=== PATIENT | female | born 1970 | race Caucasian/White ===

== ENCOUNTER → 2020-03-31 | Outpatient (CLI) | payer OTHER ==
--- NOTE | 2020-03-31 12:31 | FL ---
EXAMINATION TYPE: FL barium swallow DATE OF EXAM: 03/31/2020 COMPARISON: None HISTORY: Dysphasia feels like something is stuck in throat TECHNIQUE: Double air contrast technique is utilized to evaluate the esophagus. FINDINGS: Esophagus dilates to normal caliber has normal contour to the gastroesophageal junction. Gastroesopha geal junction opens to normal caliber. No intraluminal filling defects are evident. No Zenker's diver ticulum was identified. Gastroesophageal junction opens to normal caliber. There are couple of tertiary contractions present during this examination. There is complete strippin g of the esophageal bolus the horizontal drinking position. Small anterior osteophytes at C6 are pres ent which is approximately level of patient complains of dysphasia. On swallowing images of the tiny amount of contrast may remain anterior to the cervical esophagus following swallowing. IMPRESSION: 1. No suspicious acute changes to suggest obstruction or retained foreign bodies. 2. No focal stenosis. 3. Very minimal contrast remains following the initial swallowing within the proximal cervical esoph cata.
== END | disposition home or self-care (01) ==
LOC: RADUSWWP 09:49
PROVIDERS: ATTEND Otolaryngology
DX: R13.10 Dysphagia, unspecified (principal)
CPT/HCPCS: 74220

== ENCOUNTER 2020-04-02 14:00 | Emergency (ER) | payer OTHER ==
--- NOTE | 2020-04-02 15:17 | ED ---
Abdominal Pain HPI - General Source: patient Mode of arrival: ambulatory Limitations: no limitations <Mari Woo - Last Filed: 04/02/20 16:33> <Yeny Myles - Last Filed: 04/07/20 07:17> - General Chief Complaint: Abdominal Pain Stated Complaint: Abd pain Time Seen by Provider: 04/02/20 14:15 - History of Present Illness Initial Comments: 49-year-old female presenting today for chief complaint of abdominal fullness, constipation. Patient states that she has not had a large bowel movement for past week but is passing stool> Denies dark or bloody stools. Has barium swallow two days prior with her ENT physician secondary to pain with swallowing for months. Patient denies significant abdominal pain, but states at time she has cramping. Patient denies fevers, vomiting, back pain. patient denies urinary changes. Patient appears well on arrival no acute distress. (Mari Woo) - Related Data Previous Rx's Medication Instructions Recorded Amoxicillin/Potassium Clav 1 each PO Q12HR #20 tab 02/22/14 [Augmentin 875-125 Tablet] Hydrocodone/Acetaminophen 1 each PO QID PRN #10 tablet 02/22/14 [Hydrocodone/Acetaminophen 5-325] Allergies Allergy/AdvReac Type Severity Reaction Status Date / Time No Known Allergies Allergy Verified 04/02/20 14:14 Review of Systems ROS Other: All systems not noted in ROS Statement are negative. <Mari Woo - Last Filed: 04/02/20 16:33> ROS Other: All systems not noted in ROS Statement are negative. <Yeny Myles - Last Filed: 04/07/20 07:17> ROS Statement: Those systems with pertinent positive or pertinent negative responses have been documented in the HPI. Past Medical History Past Medical History: No Reported History History of Any Multi-Drug Resistant Organisms: None Reported Past Surgical History: Tubal Ligation Past Psychological History: No Psychological Hx Reported Smoking Status: Former smoker Past Alcohol Use History: Rare Past Drug Use History: None Reported <Mari Woo - Last Filed: 04/02/20 16:33> General Exam Limitations: no limitations <Mari Woo - Last Filed: 04/02/20 16:33> Course Vital Signs 04/02/20 04/02/20 14:10 16:33 Temperature 98.4 F 98.2 F Pulse Rate 100 90 Respiratory 18 16 Rate Blood Pressure 134/69 128/73 O2 Sat by Pulse 97 98 Oximetry Medical Decision Making <Mari Woo - Last Filed: 04/02/20 16:33> <Yeny Myles - Last Filed: 04/07/20 07:17> - Medical Decision Making X-ray negative for sniffing constipation no evidence of obstructive bowel pattern. Patient has soft nondistended abdomen no tenderness. Patient is change in bowel habits. At this time recommend GI follow-up. Return for any abdominal pain patient discharged. While Dr. Myles agreeable to care for discharge at this time patient seemed agreeable and happy with the care plan discharge in no distress appearing very well (Mari Woo) I was available for consultation in the emergency department. The history and physical exam were done by the midlevel provider. I was consulted for this patients care. I reviewed the case with the midlevel provider and based on their presentation of the patient, I agree with the assessment, medical decision making and plan of care as documented. Chart was dictated using Mydeo dictation software. Attempts were made to correct any dictation errors however some typographical errors may persist. (Yeny Myles) Disposition Is patient prescribed a controlled substance at d/c from ED?: No Time of Disposition: 16:26 <Mari Woo - Last Filed: 04/02/20 16:33> <Yeny Myles - Last Filed: 04/07/20 07:17> Clinical Impression: Bowel habit changes Disposition: HOME SELF-CARE Condition: Good Instructions (If sedation given, give patient instructions): Irritable Bowel Syndrome (ED), Constipation (ED) Additional Instructions: Please use medication as discussed. Please follow-up with family doctor in the next 2 days, recommend GI follow-up. Please return to emergency room if the symptoms increase or worsen or for any other concerns. Referrals: [facility] [Primary Care Provider] - 1-2 days Maria G Boateng MD [STAFF PHYSICIAN] - 1-2 days
--- NOTE | 2020-04-02 16:18 | XR ---
EXAMINATION TYPE: XR KUB DATE OF EXAM: 04/02/2020 COMPARISON: 03/16/2010 HISTORY: Constipation. Pain. TECHNIQUE: 2 views upright FINDINGS: There is contrast in the large bowel. There is no significant retained fecal material. Ivette l gas pattern is normal. There is no sign of intestinal obstruction or pneumoperitoneum. Lung bases a re clear. I see no pathologic calcifications. Bony structures appear intact. IMPRESSION: Nonacute abdomen. No sign of constipation.
[2020-04-02 16:34] VITALS: BP 128/73; PULSE 90; RESP 16; TEMP 98.2
== END 2020-04-02 16:34 | disposition home or self-care (01) ==
LOC: EC 14:00
DX: R19.4 Change in bowel habit (principal); R10.9 Unspecified abdominal pain; Z87.891 Personal history of nicotine dependence
CPT/HCPCS: 74018; 99284

== ENCOUNTER 2020-05-04 09:21 | Day surgery (SDC) | payer OTHER ==
[2020-05-02 13:57] VITALS: BMI 27.5
[~2020-05-04 09:21] MED LIST: LIDOCAINE 1% (10MG/ML) FOR IV START INTRADERMA PRN
[2020-05-04 09:42] VITALS: RESP 16; TEMP 97.7
[2020-05-04] MEDS: LACTATED RINGERS 1,000 ML IV SCH ×2 (09:51→10:40)
[2020-05-04] MEDS ORDERED: PROPOFOL 10 MG/ML 20 ML VIAL IV ONE (10:42)
[2020-05-04] MEDS ORDERED: LIDOCAINE 1% INJ 10MG/ML (20 ML MDV) ONE (10:42)
--- NOTE | 2020-05-04 10:53 | P.PCN ---
Date of Procedure: 05/04/20 Procedure(s) Performed: BRIEF HISTORY: Patient is a 49-year-old, pleasant, female scheduled for an upper endoscopy for evaluation of dysphagia solids and occasionally with liquids for the last 6 weeks duration. He lost 30 pounds since onset of the symptoms. His and scheduled for an upper endoscopy with possible dilation. PROCEDURE PERFORMED: Esophagogastroduodenoscopy with biopsy. PREOPERATIVE DIAGNOSIS: Progressive dysphagia to solids for the last 5 weeks duration with weight loss of 30 pounds.. IV sedation per anesthesia. PROCEDURE: After informed consent was obtained, the patient was brought into the endoscopy unit. IV sedation was administered by Anesthesia under continuous monitoring. Initially the Olympus GIF-140 video endoscope was inserted into the mouth. Esophagus intubated without any difficulty. It was gradually advanced into the stomach and duodenum and carefully examined. The bulb and the second part of the duodenum appeared normal. The scope at this time was withdrawn to the stomach, adequately insufflated with air, and upon careful examination, mucosa of the antrum, body, cardia and the fundus appeared normal. The scope was then withdrawn into the esophagus. The GE junction was located at 39 cm from the incisors. The esophagus appeared normal. There were no erosions or ulcerations seen , multiple biopsies were done from the distal esophagus and the patient tolerated the procedure well. IMPRESSION: 1. Normal-appearing esophagus with no evidence of esophagitis or esophageal stricture. 2. Normal-appearing stomach and. RECOMMENDATIONS: The findings of this examination were discussed with the patient as well as a family. She was advised to follow with the biopsy results. In the meantime she will be given a a trial of Prilosec 20 mg daily for 4 weeks. If the symptoms she is scheduled for an esophageal manometry to evaluate for esophageal dysmotility..
[2020-05-04 11:13] VITALS: BP 122/76; PULSE 69
== END 2020-05-04 11:40 | disposition home or self-care (01) ==
LOC: ORWHC2ENDO 09:21
PROVIDERS: ATTEND Internal Medicine Gastroenterology
DX: K21.0 Gastro-esophageal reflux disease with esophagitis (principal); Z98.51 Tubal ligation status; Z79.899 Other long term (current) drug therapy
CPT/HCPCS: 81025; 88305; 43239; J2001; J2704

== ENCOUNTER → 2020-06-17 | Day surgery (SDC) | payer OTHER ==
[2020-06-15 13:38] VITALS: BMI 27.2
[2020-06-17 10:14] VITALS: BP 147/70; PULSE 68; RESP 16; TEMP 97.9
--- NOTE | 2020-06-17 15:16 | OP ---
OPERATIVE REPORT DATE OF DICTATION: 06/17/2020. PROCEDURE PERFORMED: Esophageal high-resolution impedance esophageal manometry. PREOPERATIVE DIAGNOSIS: Dysphagia. PROCEDURE DESCRIPTION: After informed consent was obtained from the patient, she was brought into the endoscopy unit. The esophageal manometry catheter was passed into the external nostril. It was gently advanced into the stomach and the esophageal manometry was performed by the endoscopy nursing staff. Study was interpreted using [place] classification. Following are the study results: 1. Lower esophageal sphincter: Mean IRP 7 mmHg. Residual pressure 5 mmHg. 2. Lower esophageal body: Mean DCI 1045 mmHg. Peristaltic contractions 100%. Simultaneous contractions 0%. Retrograde contraction 0%. 3. Impedance study: Complete transit with viscous is 70%. Complete bolus transit with liquids 0%. INTERPRETATION: The above esophageal manometry study shows normal lower esophageal sphincter pressures and a motility pattern involving the upper and lower esophageal bodies within normal limits. There is no evidence of esophageal dysmotility. MMODL / IJN: [id number] /
== END ==
LOC: ORWHC2ENDO 09:50
PROVIDERS: ATTEND Internal Medicine Gastroenterology
DX: R13.10 Dysphagia, unspecified (principal)
CPT/HCPCS: 91010

== ENCOUNTER → 2024-08-06 | Outpatient (CLI) | payer OTHER ==
--- NOTE | 2024-08-06 15:48 | US ---
EXAMINATION TYPE: US pelvis complete transvag DATE OF EXAM: 08/06/2024 COMPARISON: CT abdomen and pelvis 08/06/2024 CLINICAL INDICATION: Female, 54 years old with history of R19.00 INTRA-ABD AND PELVIC SWELLING; Pelvi c mass follow up to ct scan TECHNIQUE: Transvaginal (TV) and Transabdominal (TA) . FINDINGS: EXAM MEASUREMENTS: 1. Uterus: Not visualized due to mass. 2. Endometrium: Not visualized due to mass 3. Right Ovary: Not visualized due to mass 4. Left Ovary: Not visualized due to mass 5. Bilateral Adnexa: Unable to access due to mass. 6. Posterior cul-de-sac: Unable to access due to mass. Complex heterogenous mass measuring 21 x 15.5 x 21.6 cm. This demonstrates large soft tissue heteroge nous component with septations and additional regions of anechoic appearing fluid. The soft tissue co mponent does not demonstrate internal color flow. IMPRESSION: Redemonstration of a large complex soft tissue and fluid mass within the midline pelvis measuring up to 21.[address] 08/06/2024. No internal color flow identified. The remaining reproductive pe lvic structures are poorly visualized due to this mass. This again may represent an ovarian or uterin e or endometrial mass. Gynecologic oncology surgical consultation is recommended. Consider further ev aluation with MR abdomen/pelvis with IV contrast. [facility], , 08/06/2024 3:46 PM
== END | disposition home or self-care (01) ==
LOC: RADUSWWP 14:49
PROVIDERS: ATTEND Family Medicine
DX: R19.00 Intra-abdominal and pelvic swelling, mass and lump, unspecified site (principal)
CPT/HCPCS: 76830; 76856

== ENCOUNTER → 2024-08-06 | Outpatient (CLI) | payer OTHER ==
--- NOTE | 2024-08-06 09:00 | CT ---
EXAMINATION TYPE: CT abdomen pelvis wo/w con DATE OF EXAM: 08/06/2024 COMPARISON: HISTORY: LUQ pain with a palpable mass which has grown rapidly in the last [address] DLP: 2486 mGycm Automated exposure control for dose reduction was used. CONTRAST: CT scan of the abdomen pelvis is performed without and with IV Contrast, patient injected with 100 ml mL of Isovue 300. FINDINGS- LUNG BASES- basilar atelectasis. Heart size is mildly prominent. LIVER/GB- No gross abnormality is appreciated. PANCREAS- No gross abnormality is seen. SPLEEN- No gross abnormality is seen. ADRENALS- No gross abnormality is seen. KIDNEYS/BLADDER- no hydronephrosis nephrolithiasis or renal mass. BOWEL- small hiatal hernia. Bowel gas nonspecific. LYMPH NODES- soft tissue nodule in the right pelvis may be vascular rather than representing a small area of lymphadenopathy reference image 78 series 6 and should be monitored. OSSEOUS STRUCTURES- L2 level hypertrophic and degenerative changes in the spine. 5 mm area of locali zed demineralization the L3 segment is too small to characterize. BE degenerative. Early metastatic d isease not entirely OTHER- there is a large cystic mass may be related to uterine or endometrial ovarian stain in the pe lvis measuring 20 cm. More appropriately evaluated with ultrasound. Additional small cystic adnexal l esion measuring 2.4 cm on image 51. There is displacement of the adjacent structures. Bladder is limited by an complete distention. IMPRESSION- 1. Nonspecific large 20 cm mass in the pelvis likely related to either the uterus, endometrium or ova jeanette. Recommend pelvic ultrasound. [facility], , 08/06/2024 8:57 AM
== END ==
LOC: RADCTMAIN 06:16
PROVIDERS: ATTEND Family Medicine
CPT/HCPCS: 74178

== ENCOUNTER → 2024-08-12 | Outpatient (CLI) | payer OTHER ==
--- NOTE | 2024-08-19 11:33 | MR ---
EXAMINATION TYPE: MR pelvis wo/w con DATE OF EXAM: 08/12/2024 10:07 AM COMPARISON: 08/06/2024. CLINICAL INDICATION: Female, 54 years old with history of R19.00 INTRA-ABD AND PELVIC SWELLING, MASS AND LUM; PHH, Intra abd and pelvis swelling and pain. TECHNIQUE: Triplane multisequence imaging was performed of the pelvis. IV Contrast: 9 cc Gadavist FINDINGS: Reproductive: Vagina: Unremarkable. Uterus: The uterus is anteverted in position. There is a heterogenous partially cystic partially iglesia d mass that appears to be extending from the uterine fundus on sagittal imaging measuring up to 22.1 cm by 22.7 cm. Junctional zone is poorly visualized due to the mass. There is a focal area of high T2 signal adjacent to the endometrium measuring 11 mm possibly representing subendometrial cyst. Ovaries: Right ovary poorly is thought to be located in the right low pelvis laterally. The displaced right ovary demonstrates high T2 cysts measuring up to 3.3 cm. The left ovary demonstrates at least 2 small cysts measuring up to 8 mm. The left ovary measures 21 x 13 mm. Bladder: Unremarkable. Bowel: Unremarkable as visualized. Peritoneum: No free fluid or adenopathy. Lymph nodes: No evidence of adenopathy. Vasculature: Unremarkable. Musculoskeletal: Bone marrow signal is within normal signal intensity. Abdominal wall/soft tissues: Unremarkable. IMPRESSION: 1. Large abdominal mass partially in the ercew-ic-zadc, this appears to be coming from the uterine f undus. Correlate for degenerating fibroid versus cystic mass versus fluid in endometrium from cervica l stenosis which is thought to be less likely versus other. Malignancy not excluded. Gynecology oncol ogy consultation recommended. 2. Right ovarian cyst measuring up to 3.3 cm thought to be present located in the right low abdomen laterally. These are likely displaced by the large uterus. [facility], , 08/19/2024 11:30 AM
== END | disposition home or self-care (01) ==
LOC: RADMRIMAIN 08:30
PROVIDERS: ATTEND Family Medicine
CPT/HCPCS: 72197

== ENCOUNTER → 2024-09-08 | Outpatient (CLI) | payer OTHER ==
--- NOTE | 2024-09-08 11:14 | MM ---
Reason for Exam: Screening (asymptomatic). Patient History: Menarche at age 12. First Full-Term at age 19. Perimenopausal. Risk Values: Sneha 5 year model risk: 0.9%. NCI Lifetime model risk: 6.8%. Tissue Density: There are scattered areas of fibroglandular density. Findings: Analyzed By CAD. Right breast: Grouped Calcifications right breast upper aspect MLO view posterior nipple line on CC view. Left breast: There is no suspicious group of microcalcifications or new suspicious mass. Overall Assessment: Incomplete: need additional imaging evaluation, BI-RAD 0 Management: Diagnostic Mammogram of the right breast. Magnification views right breast. [facility] will attempt to contact patient to return for supplemental views and ultrasound if indicated. Patient should continue monthly self-breast exams. A clinical breast exam by your physician is recommended on an annual basis. This exam should not preclude additional follow-up of suspicious palpable abnormalities. Note on Sneha scores and lifetime risk: 1. A Sneha score greater than 3% is considered moderate risk. If this is the case, consider specialist referral to assess eligibility for a risk reducing agent. 2. If overall lifetime risk for the development of breast cancer is 20% or higher, the patient may qualify for future screening with alternating mammogram and breast MRI. [facility], , 09/08/2024 11:11 AM. Electronically signed and approved by: Hector Perdomo DO
== END | disposition home or self-care (01) ==
LOC: RADMAMWWP 06:50
PROVIDERS: ATTEND Family Medicine
DX: Z12.31 Encounter for screening mammogram for malignant neoplasm of breast (principal); Z01.818 Encounter for other preprocedural examination; R19.00 Intra-abdominal and pelvic swelling, mass and lump, unspecified site; R92.323 Mammographic fibroglandular density, bilateral breasts
CPT/HCPCS: 77063; 77067; 82378; 86304

== ENCOUNTER 2024-09-15 15:35 | Emergency (ER) | payer OTHER ==
--- NOTE | 2024-09-15 15:59 | ED ---
Nausea/Vomiting/Diarrhea HPI - General Chief complaint: Nausea/Vomiting/Diarrhea Stated complaint: VOMITING Time Seen by Provider: 09/15/24 15:48 Source: patient, RN notes reviewed Mode of arrival: ambulatory Limitations: no limitations - History of Present Illness Initial comments: This is a 54-year-old female with nausea/vomiting x 1 day. Patient endorses recent total hysterectomy x 5 days ago at [facility] following discovery of a uterine mass. Patient states current symptoms started shortly after taking all postoperative prescribed medications including: Ibuprofen, Tylenol and oxycodone the day prior. Patient states she attempted taking p.o. Zofran for her symptoms with subsequent emesis. Patient endorses some abdominal pain (5/10) and diarrhea and and inability to hold down food/liquid. Patient denies fever, chills, chest pain, dyspnea, hematemesis, hematochezia, dizziness. MD complaint: nausea, vomiting Onset/Timin -: days(s) Description of Vomiting: food contents, watery Description of Diarrhea: water Associated Abdominal Pain: Yes Location: periumbilical Radiation: none Severity scale (1-10): 5 Improves with: none Worsens with: eating, vomiting Context: recent surgery/procedure Associated Symptoms: loss of appetite, nausea/vomiting - Related Data Home Medications Medication Instructions Recorded Confirmed Loratadine [Claritin] 10 mg PO DAILY PRN 05/02/20 06/15/20 Cannabidiol (Cbd) [Epidiolex] 1 dose PO DAILY PRN 06/15/20 06/15/20 Allergies Allergy/AdvReac Type Severity Reaction Status Date / Time milk Allergy Unknown Verified 09/15/24 15:37 Review of Systems ROS Statement: Those systems with pertinent positive or pertinent negative responses have been documented in the HPI. ROS Other: All systems not noted in ROS Statement are negative. Past Medical History Past Medical History: No Reported History Additional Past Medical History / Comment(s): states having difficulty swallowing food. states had "calcifications of sinuses" seasonal allergies History of Any Multi-Drug Resistant Organisms: None Reported Past Surgical History: Hysterectomy, Tubal Ligation Additional Past Surgical History / Comment(s): Complete hysterectomy 09/10. polyps from nasal cavity 2021 Past Anesthesia/Blood Transfusion Reactions: No Reported Reaction Additional Past Anesthesia/Blood Transfusion Reaction / Comment(s): daughter ponv Past Psychological History: No Psychological Hx Reported Smoking Status: Former smoker Past Alcohol Use History: None Reported Past Drug Use History: None Reported - Past Family History Father Family Medical History: Unable to Obtain Additional Family Medical History / Comment(s): patient is unaware of father's history General Exam Limitations: no limitations General appearance: alert, anxious, in distress Head exam: Present: atraumatic, normocephalic, normal inspection Eye exam: Present: normal appearance, PERRL, EOMI. Absent: scleral icterus, conjunctival injection, periorbital swelling ENT exam: Present: normal exam, mucous membranes moist Neck exam: Present: normal inspection. Absent: tenderness, meningismus, lymphadenopathy Respiratory exam: Present: normal lung sounds bilaterally. Absent: respiratory distress, wheezes, rales, rhonchi, stridor Cardiovascular Exam: Present: regular rate, normal rhythm, normal heart sounds. Absent: systolic murmur, diastolic murmur, rubs, gallop, clicks GI/Abdominal exam: Present: soft, tenderness (Diffuse tenderness especially in the left lower quadrant and epigastric regions.), diminished bowel sounds, other (Vertical incision site inferior to umbilicus is stapled with good alignment of incision edges. Negative surrounding erythema, warmth, discharge). Absent: distended, guarding, rebound, rigid Extremities exam: Present: normal inspection, full ROM, normal capillary refill. Absent: tenderness, pedal edema, joint swelling, calf tenderness Back exam: Present: normal inspection Neurological exam: Present: alert, oriented X3, CN II-XII intact Psychiatric exam: Present: normal affect, normal mood Skin exam: Present: warm, dry, intact, normal color. Absent: rash Course Vital Signs 09/15/24 15:37 Temperature 97.3 F L Pulse Rate 114 H Respiratory 20 Rate Blood Pressure 154/77 O2 Sat by Pulse 98 Oximetry Medical Decision Making - Medical Decision Making Was pt. sent in by a medical professional or institution (, PA, [employer], urgent care, hospital, or [place] health care facility...) When possible be specific @ -[No] Did you speak to anyone other than the patient for history (EMS, parent, family, police, friend...)? What history was obtained from this source @ -[No] Did you review nursing and triage notes (agree or disagree)? Why? @ -[I reviewed and agree with nursing and triage notes] Were old charts reviewed (outside hosp., previous admission, EMS record, old EKG, old radiological studies, urgent care reports/EKG's, [place] health care facility records)? Report findings @ -[No old charts were reviewed] Differential Diagnosis (chest pain, altered mental status, abdominal pain women, abdominal pain men, vaginal bleeding, weakness, fever, dyspnea, syncope, headache, dizziness, GI bleed, back pain, seizure, CVA, palpatations, mental health, musculoskeletal)? @ -Differential Abdominal Pain Women: Appendicitis, Cholecystitis, diverticulosis, ischemic bowel, pancreatitis, hepatitis, UTI, gastroenteritis, AAA, incarcerated hernia, bowel obstruction, constipation, inflammatory bowel, hepatitis, peptic ulcer disease, splenic infarction, perforated viscus, vulvitis, ovarian torsion, PID, kidney stone, placenta abruption, this is not meant to be an all-inclusive list EKG interpreted by me (3pts min.). @ -Not done X-rays interpreted by me (1pt min.). @ -[None done] CT interpreted by me (1pt min.). @ -[None done] U/S interpreted by me (1pt. min.). @ -[None done] What testing was considered but not performed or refused? (CT, X-rays, U/S, labs)? Why? @ -[None] What meds were considered but not given or refused? Why? @ -[None] Did you discuss the management of the patient with other professionals (professionals i.e. , PA, [employer], lab, RT, psych nurse, social worker clinical, hopper feeder, teacher, consumer loan officer, residential case manager)? Give summary @ -[No] Was smoking cessation discussed for >3mins.? @ -[No] Was critical care preformed (if so, how long)? @ -[No] Were there social determinants of health that impacted care today? How? (Homelessness, low income, unemployed, alcoholism, drug addiction, transportatio n, low edu. Level, literacy, decrease access to med. care, custodial, rehab)? @ -[No] Was there de-escalation of care discussed even if they declined (Discuss DNR or withdrawal of care, Hospice)? DNR status @ -[No] What co-morbidities impacted this encounter? (DM, HTN, Smoking, COPD, CAD, Cancer, CVA, ARF, Chemo, Hep., AIDS, mental health diagnosis, sleep apnea, morbid obesity)? @ -[None] Was patient admitted / discharged? Hospital course, mention meds given and route, prescriptions, significant lab abnormalities, going to OR and other pertinent info. @ -[hospital course] Undiagnosed new problem with uncertain prognosis? @ -[No] Drug Therapy requiring intensive monitoring for toxicity (Heparin, Nitro, Insulin, Cardizem)? @ -[No] Were any procedures done? @ -[No] Diagnosis/symptom? @ -Lactic acidosis, reaction to medication Acute, or Chronic, or Acute on Chronic? @ -Acute Uncomplicated (without systemic symptoms) or Complicated (systemic symptoms)? @ -Uncomplicated Side effects of treatment? @ -[No] Exacerbation, Progression, or Severe Exacerbation? @ -Exacerbation Poses a threat to life or bodily function? How? (Chest pain, [place], HI, pneumonia, PE, COPD, DKA, ARF, appy, cholecystitis, CVA, Diverticulitis, Homicidal, Suicidal, threat to staff... and all critical care pts) @ -[No] - Lab Data Result diagrams: 09/15/24 16:13 09/15/24 16:13 Lab Results 09/15/24 09/15/24 09/15/24 Range/Units 16:13 16:13 16:13 WBC 12.4 H (3.8-10.6) k/uL RBC 4.83 (3.80-5.40) m/uL Hgb 10.9 L (11.4-16.0) gm/dL Hct 36.6 (34.0-46.0) % MCV 75.8 L (80.0-100.0) fL MCH 22.7 L (25.0-35.0) pg MCHC 29.9 L (31.0-37.0) g/dL RDW 18.1 H (11.5-15.5) % Plt Count 732 H (150-450) k/uL MPV 7.5 Neutrophils % 79 % Lymphocytes % 15 % Monocytes % 3 % Eosinophils % 2 % Basophils % 0 % Neutrophils # 9.8 H (1.3-7.7) k/uL Lymphocytes # 1.8 (1.0-4.8) k/uL Monocytes # 0.4 (0-1.0) k/uL Eosinophils # 0.3 (0-0.7) k/uL Basophils # 0.0 (0-0.2) k/uL Hypochromasia Moderate Anisocytosis Slight Microcytosis Slight Sodium 140 (137-145) mmol/L Potassium 4.2 (3.5-5.1) mmol/L Chloride 102 (98-107) mmol/L Carbon Dioxide 26 (22-30) mmol/L Anion Gap 12 mmol/L BUN 15 (7-17) mg/dL Creatinine 0.60 (0.52-1.04) mg/dL Est GFR (CKD-EPI)AfAm >90 (>60 ml/min/1.73 sqM) Est GFR (CKD-EPI)NonAf >90 (>60 ml/min/1.73 sqM) Glucose 127 H (74-99) mg/dL Plasma Lactic Acid Adam 2.1 H* (0.7-2.0) mmol/L Calcium 10.4 H (8.4-10.2) mg/dL Total Bilirubin 0.8 (0.2-1.3) mg/dL AST 206 H (14-36) U/L ALT 159 H (4-34) U/L Alkaline Phosphatase 126 (38-126) U/L Total Protein 8.3 H (6.3-8.2) g/dL Albumin 4.5 (3.5-5.0) g/dL Disposition Clinical Impression: Lactic acidosis, Reaction, drug, adverse Disposition: HOME SELF-CARE Instructions (If sedation given, give patient instructions): Acute Nausea and Vomiting (ED) Additional Instructions: Follow-up with PCP in next 24 to 48 hours. Is patient prescribed a controlled substance at d/c from ED?: No Referrals: Amy You MD [Primary Care Provider] - 1-2 days Time of Disposition: 17:11
[2024-09-15] MEDS: SODIUM CHLORIDE 0.9% 1,000 ML IV STA ×2 (16:11→16:55)
[2024-09-15] MEDS: ONDANSETRON 4 MG/2 ML VIAL IVP STA (16:12)
[2024-09-15 16:26] LABS: Anisocytosis Slight; Basophils % (A) 0 %; Eosinophils # (A) 0.3 k/uL (0-0.7); Eosinophils % (A) 2 %; HCT 36.6 % (34.0-46.0); HGB 10.9 gm/dL (11.4-16.0); Hypochromasia Moderate; Lymphocytes # (A) 1.8 k/uL (1.0-4.8); Lymphocytes % (A) 15 %; MCH 22.7 pg (25.0-35.0); MCHC 29.9 g/dL (31.0-37.0); MCV 75.8 fL (80.0-100.0); Mean Platelet Volume 7.5; Microcytosis Slight; Monocytes # (A) 0.4 k/uL (0-1.0); Monocytes % (A) 3 %; Neutrophils # (A) 9.8 k/uL (1.3-7.7); Neutrophils % (A) 79 %; Platelet Count 732 k/uL (150-450); RBC 4.83 m/uL (3.80-5.40); RDW 18.1 % (11.5-15.5); WBC 12.4 k/uL (3.8-10.6)
[2024-09-15 16:38] LABS: Potassium 4.2 mmol/L (3.5-5.1)
[2024-09-15 16:39] LABS: ALT 159 U/L (4-34); AST 206 U/L (14-36); African American GFR (CKD) >90 (>60 ml/min/1.73 sqM); Albumin 4.5 g/dL (3.5-5.0); Alkaline Phosphatase 126 U/L (38-126); Anion Gap 12 mmol/L; Blood Urea Nitrogen 15 mg/dL (7-17); Calcium 10.4 mg/dL (8.4-10.2); Carbon Dioxide 26 mmol/L (22-30); Chloride 102 mmol/L (98-107); Glucose 127 mg/dL (74-99); Non-African American GFR(CKD) >90 (>60 ml/min/1.73 sqM); Sodium 140 mmol/L (137-145); Total Bilirubin 0.8 mg/dL (0.2-1.3); Total Protein 8.3 g/dL (6.3-8.2)
[2024-09-15] MEDS: KETOROLAC 15 MG/ML 1 ML VIAL IVP STA (17:20)
[2024-09-15] MEDS: ONDANSETRON 4 MG ODT STARTER PACK 2 TAB BTL PO STA (17:21)
[2024-09-15 17:59] VITALS: BP 137/81; PULSE 94; RESP 18; TEMP 97.6
== END 2024-09-15 17:57 | disposition home or self-care (01) ==
LOC: EC 15:35
DX: E87.20 Acidosis, unspecified (principal); T45.0X5A Adverse effect of antiallergic and antiemetic drugs, initial encounter; Z87.891 Personal history of nicotine dependence; Z91.011 Allergy to milk products
CPT/HCPCS: 36415; 80053; 83605; 85025; 99284; 96374; 96375; 96361; J2405; J1885; S0119

== ENCOUNTER → 2024-09-28 | Outpatient (CLI) | payer OTHER ==
--- NOTE | 2024-09-28 14:22 | MM ---
Reason for Exam: Additional evaluation requested from abnormal screening. Last screening mammogram was performed less than 1 month ago. Patient History: Menarche at age 12. First Full-Term at age 19. Left ovary removed at age 54. Right ovary removed at age 54. Hysterectomy at age 54. Postmenopausal. Maternal grandmother (GREAT) had breast cancer at or over age 50. Risk Values: Sneha 5 year model risk: 0.9%. NCI Lifetime model risk: 6.8%. Prior Study Comparison: 09/08/2024 Bilateral MG 3D screening mammo w/cad, [facility]. Tissue Density: Right: The breasts are heterogeneously dense, which may obscure small masses. Findings: Analyzed By CAD. Pattern is stable. There are focal calcifications in the upper outer right breast. A suspicious cluster of microcalcifications is not identified. Short-term monitoring is recommended follow-up exam in 6 months. Overall Assessment: Probably benign, BI-RAD 3 Management: Diagnostic Mammogram of the right breast in 6 months. A negative mammogram report should not preclude additional follow up of suspicious palpable abnormalities. Patient should continue monthly self breast exam. A clinical breast exam by your physician is recommended on an annual basis and results should be correlated with mammographic findings. Note on Sneha scores and lifetime risk: 1. A Sneha score greater than 3% is considered moderate risk. If this is the case, consider specialist referral to assess eligibility for a risk reducing agent. 2. If overall lifetime risk for the development of breast cancer is 20% or higher, the patient may qualify for future screening with alternating mammogram and breast MRI. [facility], , 09/28/2024 11:10 AM. Electronically signed and approved by: Oscar Adams D.O. Radiologis
== END | disposition home or self-care (01) ==
LOC: RADMAMWWP 10:13
PROVIDERS: ATTEND Family Medicine
DX: R92.8 Other abnormal and inconclusive findings on diagnostic imaging of breast (principal); R92.333 Mammographic heterogeneous density, bilateral breasts; Z78.0 Asymptomatic menopausal state; Z80.3 Family history of malignant neoplasm of breast
CPT/HCPCS: 77061; 77065